=== PATIENT | male | born 1995 | race African-American/Black ===

== ENCOUNTER 2021-09-13 08:14 | Emergency (ER) | payer BC ==
[~2021-09-13] VITALS: Ht 188 cm; Wt 116.6 kg
[2021-09-13] MEDS ORDERED: LACTATED RINGER'S 1,000 ML INJ STA (08:21)
[2021-09-13] MEDS ORDERED: ACETAMINOPHEN 325 MG TAB PO ONE (08:30)
[2021-09-13 08:33] LABS: BASOPHILS # (AUTO) 0.1 (0.0-0.1); BASOPHILS % 0.3 % (0.0-1.0); EOSINOPHILS # (AUTO) 0.4 (0.0-0.4); EOSINOPHILS % 2.5 % (0.0-6.0); HEMATOCRIT 34.4 % (38.2-49.6); HEMOGLOBIN 10.7 g/dL (14.0-18.0); LYMPHOCYTES # (AUTO) 1.8 (1.0-3.2); LYMPHOCYTES % 11.1 % (18.0-39.1); MEAN CORPUSCULAR HEMOGLOBIN 26.6 pg (28-32); MEAN CORPUSCULAR HGB CONC 31.1 g/dL (31-35); MEAN CORPUSCULAR VOLUME 85.4 fL (81-99); MONOCYTES # (AUTO) 0.9 (0.2-0.8); MONOCYTES % 5.5 % (4.4-11.3); NEUTROPHILS # (AUTO) 13.1 (2.1-6.9); NEUTROPHILS % 79.8 % (38.7-80.0); PLATELET COUNT 457 x10e3/uL (140-360); RED BLOOD COUNT 4.03 x10e6/uL (4.3-5.7); RED CELL DISTRIBUTION WIDTH 16.1 % (11.7-14.4)
[2021-09-13 08:51] LABS: ALBUMIN 2.3 g/dL (3.5-5.0); ALBUMIN/GLOBULIN RATIO 0.4 (0.8-2.0); ANION GAP 13.4 mmol/L (8-16); POTASSIUM 4.4 mmol/L (3.5-5.1)
[2021-09-13 08:58] LABS: INR 1.06; PROTHROMBIN TIME 14.8 seconds (11.9-14.5)
[2021-09-13 10:23] LABS: CLARITY,URINE CLEAR (CLEAR); COLOR,URINE YELLOW (YELLOW); KETONES,URINE NEGATIVE (NEGATIVE); LEUKOCYTE ESTERASE ,URINE NEGATIVE (NEGATIVE); NITRITE,URINE NEGATIVE (NEGATIVE); PROTEIN,URINE DIPSTICK 2+ (NEGATIVE); URINE UROBILINOGEN 0.2 mg/dL (0.2 - 1)
[2021-09-13 10:38] LABS: BACTERIA,URINE FEW /HPF; EPITHELIAL CELLS,URINE FEW /LPF; RBC,URINE 0-5 /HPF (0-5)
[2021-09-13] MEDS ORDERED: AMOX TR-K CLV1 EAC2 PO (12:33)
[2021-09-13] MEDS ORDERED: PREDNISONE20 MG PO (12:33)
[2021-09-13] MEDS ORDERED: DOXYCYCLINE HY100 MG PO (12:33)
[2021-09-13] MEDS ORDERED: IOPAMIDOL 370 MG/ML 100 ML INFUS..BTL INJ ONE (12:35)
== END 2021-09-13 12:50 | disposition home or self-care (01) ==
LOC: ER 08:33
DX: R50.9 Fever, unspecified (principal); J18.9 Pneumonia, unspecified organism; R07.89 Other chest pain; R05.9 Cough, unspecified; Z20.822 Contact with and (suspected) exposure to COVID-19
CPT/HCPCS: 36415; 71045; 71260; 80053; 81001; 83605; 85025; 85379; 85610; 87040; 99284; J7121; Q9967; U0002

== ENCOUNTER 2023-03-04 18:52 | Emergency (ER) | payer BC ==
[~2023-03-04] VITALS: Ht 188 cm; Wt 116.6 kg
[~2023-03-04 18:52] MED LIST: AMOX TR-K CLV1 EAC2 PO; DOXYCYCLINE HY100 MG PO; PREDNISONE20 MG PO
[2023-03-04 19:53] LABS: CLARITY,URINE CLEAR (CLEAR); COLOR,URINE YELLOW (YELLOW); KETONES,URINE 1+ (NEGATIVE); LEUKOCYTE ESTERASE ,URINE NEGATIVE (NEGATIVE); NITRITE,URINE NEGATIVE (NEGATIVE); PROTEIN,URINE DIPSTICK 2+ (NEGATIVE)
[2023-03-04 19:54] LABS: BACTERIA,URINE FEW /HPF; EPITHELIAL CELLS,URINE FEW /LPF; RBC,URINE 0-5 /HPF (0-5); WBC,URINE (MAN) 0-5 /HPF (0-5)
[2023-03-04 19:55] LABS: CALCIUM OXALATE CRYSTALS,UR FEW (FEW); MUCUS,URINE MODERATE (RARE)
[2023-03-04] MEDS ORDERED: TRAMADOL HCL 50 MG TAB PO STA (20:21)
[2023-03-04] MEDS ORDERED: CIPRO500 MG PO (20:30)
[2023-03-04] MEDS ORDERED: ULTRAM 50MG50 MG PO (20:30)
[2023-03-04] MEDS ORDERED: TRAMADOL HCL 50 MG TAB ONE (20:34)
[2023-03-04 21:00] VITALS: O2SAT 100
== END 2023-03-04 21:10 | disposition home or self-care (01) ==
LOC: ER 18:58
DX: N50.812 Left testicular pain (principal); D86.9 Sarcoidosis, unspecified
CPT/HCPCS: 76870; 81001; 93976; 99283